=== PATIENT | female | born 1970 | race Two or more races ===

== ENCOUNTER 2020-09-23 07:15 | Emergency (ER) | payer OTHER, MEDICAID ==
[~2020-09-23] VITALS: Ht 160 cm; Wt 81.6 kg
[2020-09-23 07:37] VITALS: BP 178/98
== END 2020-09-23 09:04 | disposition home or self-care (01) ==
LOC: ER 07:15
DX: S46.912A Strain of unspecified muscle, fascia and tendon at shoulder and upper arm level, left arm, initial encounter (principal); E11.9 Type 2 diabetes mellitus without complications; Z88.0 Allergy status to penicillin; Z88.8 Allergy status to other drugs, medicaments and biological substances; W19.XXXA Unspecified fall, initial encounter; Y93.89 Activity, other specified; Y92.89 Other specified places as the place of occurrence of the external cause; Y99.8 Other external cause status
CPT/HCPCS: 73030